=== PATIENT | male | born 1990 | race African-American/Black ===

== ENCOUNTER 2025-01-19 09:42 | Emergency (ER) | payer MEDICAID, OTHER ==
[~2025-01-19] VITALS: Ht 182.9 cm; Wt 100.0 kg
[2025-01-19 09:48] VITALS: O2SAT 98
[2025-01-19] MEDS: ACETAMINOPHEN 325MG TABLET PO ONE (10:12)
[2025-01-19 10:30] LABS: BASOPHILS % 0.7 % (0.0-2.0); EOSINOPHILS % 4.9 % (0.0-5.0); HEMATOCRIT. 45.2 % (42.0-52.0); HEMOGLOBIN. 15.0 g/dL (14.0-18.0); LYMPHOCYTES % 42.9 % (20.0-50.0); MEAN PLATELET VOLUME 7.2 fl (7.4-10.4); MONOCYTES % 9.9 % (2.0-8.0); NEUTROPHILS % 41.6 % (40.0-76.0); PLATELET 262 x1000/uL (130-400); RED BLOOD CELL COUNT 4.92 mill/uL (4.7-6.1); RED CELL DISTRIBUTION WIDTH 14.0 % (11.6-14.6)
[2025-01-19 10:51] LABS: CREATININE 1.2 mg/dL (0.6-1.3)
[2025-01-19 10:52] LABS: UREA NITROGEN BLOOD 12 mg/dL (9-23)
[2025-01-19 10:53] LABS: ASPARTATE AMINOTRANSFERASE 34 IU/L (<34)
[2025-01-19 10:54] LABS: BILIRUBIN TOTAL 0.4 mg/dL (0.1-1.0); PROTEIN TOTAL 7.3 g/dL (6.0-8.3)
[2025-01-19 12:06] VITALS: BP 136/79; PULSE 66; TEMP 36.9; O2SAT 99
[2025-01-19 12:16] VITALS: RESP 18
[2025-01-19] MEDS ORDERED: IOHEXOL-300 100 ML BOTTLE ONE (14:04)
== END 2025-01-19 12:30 | disposition home or self-care (01) ==
LOC: ER 09:42
DX: R10.9 Unspecified abdominal pain (principal); M25.551 Pain in right hip; M79.601 Pain in right arm; V19.40XA Pedal cycle driver injured in collision with unspecified motor vehicles in traffic accident, initial encounter; Y93.55 Activity, bike riding; Y92.89 Other specified places as the place of occurrence of the external cause; Y99.8 Other external cause status
CPT/HCPCS: 99291; 72128; 80053; 83690; 85025; 36415; 73502; 73030; 73110; 73130; 74177; Q9967